=== PATIENT | male | born 1960 | race Caucasian/White ===

== ENCOUNTER 2022-08-24 01:45 | Day surgery (SDC) | payer BC, SELFPAY ==
[2022-08-21 11:55] VITALS: BMI 26.7
--- NOTE | 2022-08-21 12:00 | PC.NURSE ---
Report to the Outpatient Waiting Room, entrance under the green pavilion located off [facility], at time 0930 on date 08/24/22. Planned Procedure Time: 1130. Time changes happen often and if your time is changed the preop area will call you the afternoon before. - You and your visitor will be asked to self-screen and do not enter if you have any COVID symptoms. - Only one visitor is requested with a max of two and NO children visitors are allowed at this time. - The patient visitor may be requested to leave or wait in car when not with patient due to distancing restrictions. - A mask is REQUIRED within the hospital. Patients may have clear liquids (water, carbonated beverages, clear teas, apple juice) until 3 hours prior to surgery with a maximum of 20 ounces. - No food from midnight until time of surgery Take the following medications with a SIP of water the morning of surgery: AMLODIPINE, TRAMADOL IF NEEDED Medications to discontinue per physician: N/A Date to take last dose: N/A Please no make-up, nail lao, hairspray, perfume, deodorant, or body powder the day of surgery. No jewelry (including any body piercings) or valuables the day of surgery, leave them at home. Please take a shower or bath the night before, or the morning of, surgery with an antibacterial soap. Wear comfortable, loose fitting clothing. - Jewelry must be removed prior to entering the operating room. Rings and piercings that are not removed may be cut off. - The hospital will not accept responsibility for valuables. - Please leave all valuables, including medications, at home the day of surgery. If you are going home after surgery, a licensed spotter driver must drive you home. - NO public transportation without another adult if you receive anesthesia. - We recommend that an adult stay with you for 24 hours following discharge. - We also recommend that you do not drive, make important decision, drink alcoholic beverages, or take any drugs that were not prescribed by your health care provider for at least 24 hours after your discharge time. Follow any additional instructions given to you from your surgeon. If you or anyone in your household have experienced Covid symptoms in the past week, please notify your surgeon or the nurse liaison at the phone number below for possible testing. Telephone instructions given to PT - JUNE ANDERSON and asked if any additional questions and then verbalized understanding. Patient advised to call surgeon office or pre surgery nurse liaison [phone] if any additional questions.
--- NOTE | 2022-08-22 09:02 | P.HP_ITS ---
History of Present Illness History of Present Illness Consent: Risks, benefits, and alternatives have been discussed and questions answered. Patient agrees to proceed with procedure. Chief complaint: Lt Kidney Stone Narrative: Kobi Case is a 62 year old male the is a history of urolithiasis approximately 20 years ago, recently presenting to the emergency department with left flank pain. Imaging demonstrated an obstructing 11 mm left UPJ stone. My partner, Dr. Siddiqui, placed a left ureteral stent and discussed definitive options. He presents now for left ESWL. He is aware the risk including, but not limited to, adverse cardiopulmonary events, need for additional procedures, hematuria and perinephric hematoma. Review of Systems Cardiovascular: Cardiovascular: Denies chest pain, Denies lightheadedness, Denies palpitations and Denies dyspnea Respiratory: Respiratory: Denies dyspnea Gastrointestinal: Gastrointestinal: Denies diarrhea, Denies nausea and Denies vomiting Genitourinary: Genitourinary: Denies hematuria and Denies dysuria Endocrine: Endocrine: Denies palpitations PMFSH Past Medical History Medical History Dyslipidemia Erectile dysfunction Essential (primary) hypertension Family history of renal stone Skin lesion of back (~03/24/19) Surgical History Surgical History History of lithotripsy 2000 History of tonsillectomy and adenoidectomy 1969 [place] teeth removed Family History Family History Mother Diabetes mellitus Hypertension Father Family history of elevated blood lipids Social History Social History Years smoked: 5 Smoking status: Former smoker Tobacco type: cigarettes Second hand tobacco smoke exposure: No Smoking end date: 08/26/91 Alcohol intake: current Drinks per week: 4 Alcohol use details: consumes 2 beers weekly Substance use: never Substance use type: does not use Living arrangements: alone Gender identity (if verbalized by the patient): Male Spiritual care concerns: No Meds Home Medications and Allergies Home Medications Medication Instructions Recorded Confirmed Type sildenafil 100 mg tablet 100 mg PO DAILY PRN sexual 06/20/21 08/21/22 Rx activity #30 tabs lisinopril 20 1 tablet PO DAILY #90 tabs 05/21/22 08/21/22 Rx mg-hydrochlorothiazide 12.5 mg tablet amlodipine 10 mg tablet 10 mg PO DAILY 08/21/22 08/21/22 History tramadol 50 mg tablet 50 mg PO Q6H PRN Pain 08/21/22 08/21/22 History Allergies Allergy/AdvReac Type Severity Reaction Status Date / Time No Known Allergies Allergy Verified 08/21/22 11:54 Exam Const: General: no acute distress Resp: Effort & Inspection: normal respiratory effort GI: Inspection: non-distended GI Palp: No abdominal tenderness and No Guarding due to palpation present (GI) Auscultation: normal bowel sounds Assessment and Plan Assessment and plan (1) Left renal stone: Code(s): N20.0 - Calculus of kidney Status: Acute Assessment and Plan: * Left ESWL
[2022-08-24] VITALS (8 sets, daily range): BP systolic 148–172; BP diastolic 91–108; PULSE 68–86; RESP 12–14; TEMP 36.3–37; O2SAT 96–99
--- NOTE | ~2022-08-24 | XR_ITS ---
EXAMINATION: XR abdomen/kub 1V DATE: 08/24/2022 09:41 INDICATION: Extracorporeal shockwave lithotripsy. TECHNIQUE: A supine view of the abdomen on 2 radiographs was obtained. COMPARISON: None. FINDINGS: There are couple irregularly shaped small calcification in the left and right hemipelvis alignment an d orientation of the long axis of the calcific lesions favoring atherosclerotic calcific lesion along the iliac arteries rather than urolithiasis along the ureters. Small prosthetic location projecting inferior to the pubic symphysis. No other evident nephrolithiasis. Normal bowel gas pattern. Mild dis coid atelectasis at the left lung base. Moderate to severe left-sided and mild to moderate right-side d hip osteoarthritis. IMPRESSION: 1. No definitive urolithiasis. Could consider renal stone CT for more sensitive and specific evaluati on. Reviewed, dictated and finalized at location A. L OFFICE ADMINISTRATOR IMPRESSION: 1. No definitive urolithiasis. Could consider renal stone CT for more sensitive and specific evaluation.
--- NOTE | 2022-08-24 06:08 | ECG_ITS ---
Measurements Intervals Crane Rate: 81 P: 10 MA: 142 QRS: 31 QRSD: 83 T: 28 QT: 380 QTc: 442 Interpretive Statements SINUS RHYTHM NONSPECIFIC T-WAVE ABNORMALITY BORDERLINE ECG NO PREVIOUS ECG AVAILABLE FOR COMPARISON Electronically Signed On 08-24-2022 14:55:34 [employer] by Tal Nguyen M.D.
--- NOTE | 2022-08-24 06:43 | WPDHPUPDATE1 ---
History and Physical Update Update Date/Time: 08/24/22 06:43 History and Physical has been reviewed, including an updated exam of the patient. There are NO changes in the patient's condition. Risks, benefits, and alternatives have been discussed and questions answered. Patient agrees to proceed with procedure.
--- NOTE | 2022-08-24 10:15 | WPDANESEPPF ---
Anes - Initial Pre Proc Eval Procedure: Operation Date: 08/24/22 11:30 Proposed Procedures p Left Extracorporeal Shock Wave Lithotripsy - Kushal Del Castillo MD Date/Time: 08/24/22 10:15 Surgeon: Kushal Del Castillo MD Pre Op Diagnosis: Lt Kidney Stone Patient Data Age: 62 Gender: M Height: 1.92 m Weight: 98.43 kg Allergies Allergy/AdvReac Type Severity Reaction Status Date / Time No Known Allergies Allergy Verified 08/21/22 11:54 Home Medications Medication Instructions Recorded Confirmed Type sildenafil 100 mg tablet 100 mg PO DAILY PRN sexual 06/20/21 08/21/22 Rx activity #30 tabs lisinopril 20 1 tablet PO DAILY #90 tabs 05/21/22 08/21/22 Rx mg-hydrochlorothiazide 12.5 mg tablet amlodipine 10 mg tablet 10 mg PO DAILY 08/21/22 08/21/22 History tramadol 50 mg tablet 50 mg PO Q6H PRN Pain 08/21/22 08/21/22 History Laboratory Tests 08/24/22 09:59 PT Pending INR Pending APTT Pending Patient hx anesthesia problems: none Family hx anesthesia problems: none Results Review: All pre-operative results and documents have been reviewed as part of the pre-operative evaluation. [facility] Past Medical History Medical History Dyslipidemia Erectile dysfunction Essential (primary) hypertension Family history of renal stone Skin lesion of back (~03/24/19) Surgical History Surgical History History of lithotripsy 2000 History of tonsillectomy and adenoidectomy 1969 [place] teeth removed Family History Family History Mother Diabetes mellitus Hypertension Father Family history of elevated blood lipids Social History Social History Years smoked: 5 Smoking status: Former smoker Tobacco type: cigarettes Second hand tobacco smoke exposure: No Smoking end date: 08/26/91 Alcohol intake: current Drinks per week: 4 Alcohol use details: consumes 2 beers weekly Substance use: never Substance use type: does not use Living arrangements: alone Gender identity (if verbalized by the patient): Male Spiritual care concerns: No Anes - Eval Final PreProcedure Day of Procedure 08/24/22 10:15 Patient weight: normal Heart: regular rate and rhythm Lungs: clear to auscultation Airway: Mallampati scale class II Neurological: alert and oriented Last oral intake: >/= 8 hours ASA classification: II Emergent: no Anesthetic plan: proceed Anesthesia type and monitoring: general LMA and standard monitoring Results Review: All pre-operative results and documents have been reviewed as part of the pre-operative evaluation. Informed Consent: The patient's anesthetic plan and its attendant risks and benefits were discussed with the patient/family/POA. Questions were solicited and answers provided to the satisfaction of the patient/family/POA.
[2022-08-24 10:24] LABS: INR 1.1; Prothrombin Time 14.1 Seconds (11.1-14.7)
[2022-08-24 10:25] LABS: Partial Thromboplastin Time 35.1 SECONDS (22.3-36.8)
[2022-08-24] MEDS: LACTATED RINGERS 1,000 ML 30 ML IV CONT (10:32)
[2022-08-24 10:36] LABS: Add Urine Microscopic? YES; Appearance Urine Clear (Clear); Bilirubin Urine Negative (Negative); Blood Urine 2+ (Negative); Color Urine Yellow (Yellow); Glucose Urine UA Negative (Negative); Ketones Urine Negative (Negative); Leukocyte Esterase Ur Negative LEU/UL (Negative); Nitrate Urine Negative (Negative); Protein Urine 2+ mg/dL (Negative); Specific Grav Ur >= 1.030 (1.001-1.035); Urobilinogen Urine 0.2 mg/dL (<2.0); pH Urine 5.5 (5.0-9.0)
[2022-08-24] MEDS: ceFAZolin 2 GM/D5W 50 ML 2 GM/50 ML BAG IVPB (10:37)
[2022-08-24 10:51] LABS: Mucus Urine Rare /lpf; RBC Urine 21-50 /hpf (0-2)
--- NOTE | 2022-08-24 11:02 | W.PM.PROC2 ---
Procedure Note - Detailed Date of Procedure 08/24/22 Pre-op Diagnosis Lt UPJ stone Post-op Diagnosis Other (Left ureteral stone) Procedure Performed Left ESWL Surgeon Kushal Del Castillo MD Anesthesia General Description of Procedure KUB on the morning of planned left ESWL could not clearly identify his 1 cm left UPJ calculus. Therefore opted to perform cystoscopy with retrograde pyelography in addition to left ESWL. The patient was positioned in a supine position where cystoscopy was undertaken with a 16 F flexible cystoscope after the uneventful induction of a general LMA anesthetic. His urethra was normal and he has minimal prostatic hyperplasia. Bladder mucosa is normal. There was no significant trabeculation of the bladder. There was a single orthotopic ureteral orifice bilaterally. A 0.035 in glidewire was advanced in the left ureter and we had a point of obstruction at the level of the left L3 transverse process. I did perform retrograde pyelography via an angiographic catheter which clearly shows a filling defect at that site. Using the [employer] a Lithotripter we delivered a total of 3000 shocks at a power setting of 5. Drains No Packing No Pathology None sent Complications No immediate complications Condition Stable Disposition PACU
== END 2022-08-24 13:22 | disposition home or self-care (01) ==
PROVIDERS: PCP Internal Medicine; Visit Provider Urology
PROC: (CPT 50590; principal; 2022-08-24 11:30)
DX: N20.1 Calculus of ureter (principal); I10 Essential (primary) hypertension; E78.5 Hyperlipidemia, unspecified; Z87.891 Personal history of nicotine dependence
CPT/HCPCS: 50590; 36415; 74018; 81001; 85610; 85730; 93005; C1758; C1769; J0690; J1100; J2405; J2704; J3010; J7030; J7120; Q9966